=== PATIENT | female | born 1945 | race Caucasian/White ===

== ENCOUNTER 2017-11-23 06:38 | Day surgery (SDC) | payer OTHER ==
[~2017-11-23] VITALS: Ht 167.6 cm; Wt 79.3 kg
[~2017-11-23 06:38] MED LIST: BACLOFEN20 MG PO; CLINORIL200 MG PO; COZAAR100 MG PO; ELAVIL10 MG PO; HYGROTON25 MG PO; LIPITOR10 MG PO; NEURONTIN600 MG PO; PRILOSEC20 MG PO
[2017-11-23 07:06] VITALS: BP 144/85
[2017-11-23 14:45] VITALS: BP 147/86
[2017-11-23 15:55] VITALS: BP 132/61
[2017-11-23 16:53] VITALS: BP 134/64
== END 2017-11-23 17:08 | disposition home or self-care (01) ==
LOC: SDC 06:38
DX: S82.491A Other fracture of shaft of right fibula, initial encounter for closed fracture (principal); S93.491A Sprain of other ligament of right ankle, initial encounter; M19.271 Secondary osteoarthritis, right ankle and foot; X58.XXXA Exposure to other specified factors, initial encounter; Z88.2 Allergy status to sulfonamides; Z88.0 Allergy status to penicillin
CPT/HCPCS: 73630; 76000; C1713; J0131; J1100; J1170; J1885; J2250; J2405; J2765; J2795; S0020